=== PATIENT | female | born 1995 | race Caucasian/White ===

== ENCOUNTER 2019-10-09 01:17 | Emergency (ER) | payer BC ==
[2019-10-09] MEDS ORDERED: ACETAMINOPHEN 325 MG TABLET PO ONE (02:36)
--- NOTE | 2019-10-09 03:51 | RADIOLOGY REPORT (SQ) ---
EXAM DESCRIPTION: XR HAND 3 OR MORE VIEWS COMPLETED DATE/TME: 10/09/2019 02:35 CLINICAL HISTORY: 23 years, Female, PAIN COMPARISON: None. NUMBER OF VIEWS: 3 TECHNIQUE: 3 views left hand LIMITATIONS: None. FINDINGS: Osteopenia. Chronic deformity of the distal radial ulnar joint, with chronic changes of the carpal bones. Obliquely oriented lucency associated with the distal phalanx of the thumb, consistent with nondisplaced fracture. Lucency also extends to the distal aspect of the proximal phalanx of the thumb. No other acute fracture deformities. IMPRESSION: Osteopenia. Nondisplaced fracture deformities of the thumb, as above copyright 2010 [employer]- All Rights Reserved
--- NOTE | 2019-10-09 05:14 | ER Document Report ---
ED Hand/Wrist Injury - General Chief Complaint: Thumb Injury Stated Complaint: LEFT THUMB INJURY Time Seen by Provider: 10/09/19 05:08 Primary Care Provider: EREN VILLATORO MD [ACTIVE STAFF] - Follow up as needed Notes: CHIEF COMPLAINT: Left thumb injury HPI: 23-year-old female presenting to the emergency department complaining of left thumb injury today from a mechanical fall. 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 Patient states that she normally is not able to flex and extend the thumb is very well due to her growth issues. She landed with the thumb flexed and against the hand. She states she did "pop it" back into position. She denies other injuries or complaints ROS: See HPI - all other systems were reviewed and are otherwise negative Constitutional: no fever Integumentary: no rash Allergy: no hives Musculoskeletal: + extremity pain or swelling Neurological: no numbness/tingling MEDICATIONS: I agree with the patient medications as charted by the RN. ALLERGIES: I agree with the allergies as charted by the RN. PAST MEDICAL HISTORY/PAST SURGICAL HISTORY: Reviewed and agree as charted by RN. SOCIAL HISTORY: Reviewed and agree as charted by RN. FAMILY HISTORY: No significant familial comorbid conditions directly related to patient complaint EXAM: Reviewed vital signs as charted by RN. CONSTITUTIONAL: Alert and oriented and responds appropriately to questions. Well-appearing; well-nourished HEAD: Normocephalic; atraumatic EYES: Conjunctivae clear, sclerae non-icteric ENT: normal nose; no rhinorrhea; moist mucous membranes NECK: Supple without meningismus CARD: symmetric distal pulses RESP: Normal chest excursion without splinting or tachypnea ABD/GI: non-distended. BACK: The back appears normal EXT: There is bruising and soft tissue swelling to the left thumb. There is limited flexion extension at the MCP or DIP joint space region. Mild tenderness on palpation. Capillary refill less than 3 seconds SKIN: Normal color for age and race; warm; dry; good turgor; no acute lesions noted NEURO: Motor and sensory function intact PSYCH: The patient's mood and manner are appropriate. Grooming and personal hygiene are appropriate. MDM: 23-year-old female with injury to the left thumb. There does appear to be a fracture on x-ray. Will place patient in a thumb spica this was discussed with the patient who is in agreement. Follow-up orthopedics - Related Data Allergies/Adverse Reactions: No Known Allergies Allergy (Unverified 10/09/19 02:30) Past Medical History - Social History Smoking Status: Former Smoker Frequency of alcohol use: Social Drug Abuse: None Family History: Reviewed & Not Pertinent Patient has homicidal ideation: No Physical Exam - Vital signs Vitals: Temp Pulse Resp BP Pulse Ox 98.7 F 94 18 116/78 96 10/09/19 01:39 10/09/19 01:39 10/09/19 01:39 10/09/19 01:39 10/09/19 01:39 Course - Re-evaluation Re-evalutation: 10/09/19 05:34 Was unable to E prescribe the patient's pain medications, they were manually printed for her - Vital Signs Vital signs: Temp Pulse Resp BP Pulse Ox 98.7 F 94 18 116/78 96 10/09/19 02:31 10/09/19 01:39 10/09/19 01:39 10/09/19 01:39 10/09/19 01:39 Procedures - Immobilization Left Proximal Thumb Time completed: 05:24 Pre-Proc Neuro Vasc Exam: Normal Immobilizer type: Thumb spica Performed by: PCT Post-Proc Neuro Vasc Exam: Normal, Unchanged from pre-exam Alignment checked and good: Yes Discharge - Discharge Clinical Impression: Fall Qualifiers: Encounter type: initial encounter Qualified Code(s): W19.XXXA - Unspecified fall, initial encounter Thumb fracture Qualifiers: Encounter type: initial encounter Fracture type: closed Phalanx: distal Fracture alignment: nondisplaced Laterality: left Qualified Code(s): S62.525A - Nondisplaced fracture of distal phalanx of left thumb, initial encounter for closed fracture Condition: Stable Disposition: HOME, SELF-CARE Instructions: Splint Precautions ([facility]) Additional Instructions: 1. splint for comfort 2. medicines for pain as prescribed, no driving on narcotics 3. ice the hand three times daily for swelling for 10 minutes at a time, do not place ice directly on skin 4. follow up with orthopedics for further evaluation and treatment, call for appt. Prescriptions: Oxycodone HCl/Acetaminophen [Percocet 5-325 mg Tablet] 1 tab PO Q4H PRN #15 tab PRN Reason: Referrals: EREN VILLATORO MD [ACTIVE STAFF] - Follow up as needed
[2019-10-09 06:00] VITALS: BP 119/60
== END 2019-10-09 05:56 | disposition home or self-care (01) ==
LOC: ER 01:17
DX: S62.525A Nondisplaced fracture of distal phalanx of left thumb, initial encounter for closed fracture (principal); W19.XXXA Unspecified fall, initial encounter
CPT/HCPCS: 99283